=== PATIENT | female | born 1980 | race African-American/Black ===

== ENCOUNTER 2024-01-16 23:03 | Emergency (ER) | payer MEDICAID ==
[~2024-01-16] VITALS: Ht 170.2 cm; Wt 75.0 kg
[2024-01-16 23:05] VITALS: BP 158/110; PULSE 91; RESP 16; TEMP 98.2; O2SAT 100
[2024-01-16] MEDS: LIDOCAINE HCL/PF 1% 10 MG/ML 5ML VIAL INFIL ONE (23:15)
[2024-01-16] MEDS: BACITRACIN ZINC OINT UDPKT TOP ONE (23:15)
[2024-01-17] MEDS: TETANUS, DIPHTHERIA, PERTUSSIS VAC/PF 0.5ML (>10YR OLD) IM ONE (00:07)
== END 2024-01-17 05:16 | disposition home or self-care (01) ==
LOC: ER 23:03
DX: S01.112A Laceration without foreign body of left eyelid and periocular area, initial encounter (principal); S09.90XA Unspecified injury of head, initial encounter; Y08.89XA Assault by other specified means, initial encounter; Y93.89 Activity, other specified; Y92.89 Other specified places as the place of occurrence of the external cause; Y99.8 Other external cause status
CPT/HCPCS: 12011; 99285; 70450; 90715; 90471; J3490; Z7610